=== PATIENT | male | born 1990 | race Caucasian/White ===

== ENCOUNTER 2016-11-05 09:04 | Outpatient (CLI) ==
[2016-11-05 09:16] LABS: BASOPHILS % (AUTO) 0.3 % (0.0-3.0); EOSINOPHILS # (AUTO) 0.3 K/ul (0.0-0.7); EOSINOPHILS % (AUTO) 3.8 % (0.0-7.0); HEMATOCRIT 44.8 % (42.0-52.0); HEMOGLOBIN 15.1 g/dl (14.0-18.0); IMMATURE GRANULOCYTE % (AUTO) 0.1 % (0.0-5.0); LYMPHOCYTES # (AUTO) 2.2 K/uL (0.60-3.4); MEAN CORPUSCULAR HEMOGLOBIN 28.7 pg (27.0-31.0); MEAN CORPUSCULAR HGB CONC 33.7 (31.8-35.4); MEAN CORPUSCULAR VOLUME 85.2 fl (80.0-94.0); MONOCYTES # (AUTO) 0.6 K/uL (0.4-2.0); MONOCYTES % (AUTO) 8.3 (0-10); NEUTROPHILS # (AUTO) 4.1 K/ul (2.0-6.9); NEUTROPHILS % (AUTO) 56.5; PLATELET COUNT 269 10^3/uL (140-440); RED BLOOD COUNT 5.26 10^6/ul (4.70-6.10); WHITE BLOOD COUNT 7.19 K/ul (4.2-10.2)
[2016-11-05 10:03] LABS: ALBUMIN 3.9 g/dL (3.4-5.0); ALBUMIN/GLOBULIN RATIO 0.93; ANION GAP 12.4; BILIRUBIN,TOTAL 0.9 mg/dL (0.00-1.20); BUN/CREATININE RATIO 14.73; CALCIUM 9.3 mg/dL (8.2-10.2); CHOL/HDL RATIO 3.6 (4.5-6.4); CREATININE 0.95 mg/dL (0.60-1.10); POTASSIUM 4.4 mmol/L (3.5-5.1); TOTAL PROTEIN 8.1 g/dL (6.4-8.2)
== END 2016-11-05 09:05 | disposition home or self-care (01) ==
LOC: LAB 09:04
PROVIDERS: ATTEND Family Medicine
DX: E78.5 Hyperlipidemia, unspecified (principal); I10 Essential (primary) hypertension; E66.9 Obesity, unspecified; K21.9 Gastro-esophageal reflux disease without esophagitis
CPT/HCPCS: 36415; 80053; 80061; 84439; 84443; 85025

== ENCOUNTER 2016-12-20 09:41 | Outpatient (CLI) ==
--- NOTE | 2016-12-20 10:08 | DI ---
EXAM: Right foot three views HISTORY: Pain COMPARISON: None FINDINGS: The bones are normal. The joints are normal. No focal soft tissue abnormality. IMPERSSION: Normal examination.
--- NOTE | 2016-12-20 10:09 | DI ---
EXAM: Left foot three views HISTORY: Pain COMPARISON: None FINDINGS: The bones are normal. The joints are normal. No focal soft tissue abnormality. IMPERSSION: Normal examination.
== END 2016-12-20 09:42 | disposition home or self-care (01) ==
LOC: RAD 09:41
PROVIDERS: ATTEND Family Medicine
DX: M79.672 Pain in left foot (principal); M79.671 Pain in right foot

== ENCOUNTER 2017-03-04 17:21 | Emergency (ER) ==
[2017-03-04 17:26] VITALS: BP 137/89; TEMP 99.2; BMI 40.1
[2017-03-04] MEDS ORDERED: ROCEPHIN IM STA (17:49)
[2017-03-04] MEDS ORDERED: LIDOCAINE 1 % AMP 5 ML (SUTURES) IM STA (17:49)
[2017-03-04] MEDS ORDERED: TETANUS DIPHTHERIA TOXOIDS IM ONE (17:50)
--- NOTE | 2017-03-04 17:54 | ED.PDOC ---
General ED Provider: Dr. WARREN KOHLI Chief Complaint: Bite Stated Complaint: cat bite Time Seen by Physician: 17:30 Mode of Arrival: Walk-In Information Source: Patient Exam Limitations: No limitations Primary Care [facility] Nursing and Triage Documentation Reviewed and Agree: Yes Trauma/Injury Complaint Exam - Trauma Complaint/Exam Location of Pain or Injury: Reports: Other (cat bite ) Mechanism of Injury: Reports: Other (personal pet) Onset/Duration: 17 hours ago Symptoms Are: Still present Initial Severity: Mild Current Severity: Mild Aggravating: Reports: None Alleviating: Reports: None Associated Signs and Symptoms: Denies: LOC, Confusion, Memory loss, Lethargy, Vomiting, Bleeding, Bruising, Swelling, Extremity disuse, Painful respiration, Hoarseness, Dysphagia, Hemoptysis, Significant blood loss Review of Systems - Review Of Systems Constitutional: Reports: No symptoms Eyes: Reports: No symptoms Ears, Nose, Mouth, Throat: Reports: No symptoms Respiratory: Reports: No symptoms Cardiac: Reports: No symptoms GI: Reports: No symptoms : Reports: No symptoms Musculoskeletal: Reports: No symptoms Skin: Reports: Rash (right upper ext ) Neurological: Reports: No symptoms Endocrine: Reports: No symptoms Hematologic/Lymphatic: Reports: No symptoms All Other Systems: Reviewed and Negative Past Medical History - Past Medical History Previously Healthy: Yes Endocrine: Reports: None Cardiovascular: Reports: Hypertension Respiratory: Reports: None Hematological: Reports: None Gastrointestinal: Reports: None Genitourinary: Reports: None Neuro/Psych: Reports: None Musculoskeletal: Reports: None Cancer: Reports: None - Surgical History General Surgical History: Reports: None - Family History Family History: Reports: None - Social History Smoking Status: Never smoker Hx Substance Use: No Alcohol Screening: None - Immunizations Tetanus Shot up to Date: Yes Physical Exam - Physical Exam Appearance: Well-appearing, No pain distress, Well-nourished Eyes: DANIE, EOMI, Conjunctiva clear ENT: Ears normal, Nose normal, Oropharynx normal Respiratory: Airway patent, Breath sounds clear, Breath sounds equal, Respirations nonlabored Cardiovascular: RRR, Pulses normal, No rub, No murmur GI/: Soft, Nontender, No masses, Bowel sounds normal, No Organomegaly Musculoskeletal: Normal strength, ROM intact, No edema, No calf tenderness Skin: Warm, Dry, Normal color Neurological: Sensation intact, Motor intact, Reflexes intact, Cranial nerves intact, Alert, Oriented Psychiatric: Affect appropriate, Mood appropriate Critical Care Note - Critical Care Note Total Time (mins): 0 Course - Course Orders, Labs, Meds: Orders Category Date Time Status Ceftriaxone Sodium [Rocephin] MEDS 03/04/17 17:49 Stat 1 gm IM ONCE STA Lidocaine HCl/Pf [Lidocaine 1 % Amp 5 ml (Sutures)] MEDS 03/04/17 17:49 Stat 2.1 ml IM ONCE STA Medications Discontinued Medications Generic Name Dose Route Start Last Admin Trade Name Alli PRN Reason Stop Dose Admin Ceftriaxone Sodium 1 gm 03/04/17 17:49 Rocephin IM 03/04/17 17:50 ONCE STA Lidocaine HCl 2.1 ml 03/04/17 17:49 Lidocaine 1 % Amp 5 Ml (Sutures) IM 03/04/17 17:50 ONCE STA Vital Signs: Temp Pulse Resp BP Pulse Ox 03/04/17 17:21 99.2 F 76 20 137/89 98 Departure - Departure Time of Disposition: 17:54 (personal pet, photos of injury submitted ) Disposition: HOME SELF-CARE Discharge Problem: Cat bite Qualifiers: Encounter type: initial encounter Qualifier Code: (W55.01XA) Bitten by cat, initial encounter Instructions: Animal Bite (ED) Condition: Good Pt referred to PMD for follow-up: Yes Additional Instructions: Please call your Family Physician as soon as possible to schedule a follow-up appointment. Prescriptions: Amoxicillin/Potassium Clav [Augmentin 875-125 mg Tab] 1 tab PO Q12HR #14 tablet Allergies/Adverse Reactions: Allergies No Known Allergies Allergy (Unverified 03/04/17 17:27) Home Medications: Ambulatory Orders Amoxicillin/Potassium Clav [Augmentin 875-125 mg Tab] 1 tab PO Q12HR #14 tablet 03/04/17 Lisinopril [Zestril] 5 mg PO DAILY 03/04/17 Omeprazole [Prilosec] 20 mg PO DAILY 03/04/17 Disposition Discussed With: Patient
== END 2017-03-04 18:24 | disposition home or self-care (01) ==
LOC: ED 17:21
DX: S41.151A Open bite of right upper arm, initial encounter (principal); W55.01XA Bitten by cat, initial encounter
CPT/HCPCS: 96372; 99283

== ENCOUNTER 2017-03-20 11:56 | Outpatient (CLI) ==
[2017-03-20 13:28] LABS: BASOPHILS % (AUTO) 0.4 % (0.0-3.0); EOSINOPHILS # (AUTO) 0.3 K/ul (0.0-0.7); EOSINOPHILS % (AUTO) 4.2 % (0.0-7.0); HEMATOCRIT 43.6 % (42.0-52.0); HEMOGLOBIN 14.5 g/dl (14.0-18.0); IMMATURE GRANULOCYTE % (AUTO) 0.3 % (0.0-5.0); LYMPHOCYTES # (AUTO) 2.1 K/uL (0.60-3.4); LYMPHOCYTES % (AUTO) 28.7 (10.0-50.0); MEAN CORPUSCULAR HEMOGLOBIN 28.3 pg (27.0-31.0); MEAN CORPUSCULAR HGB CONC 33.3 (31.8-35.4); MEAN CORPUSCULAR VOLUME 85.2 fl (80.0-94.0); MONOCYTES # (AUTO) 0.6 K/uL (0.4-2.0); MONOCYTES % (AUTO) 8.3 (0-10); NEUTROPHILS # (AUTO) 4.2 K/ul (2.0-6.9); NEUTROPHILS % (AUTO) 58.1; PLATELET COUNT 276 10^3/uL (140-440); RED BLOOD COUNT 5.12 10^6/ul (4.70-6.10); WHITE BLOOD COUNT 7.14 K/ul (4.2-10.2)
[2017-03-20 13:43] LABS: ALBUMIN 3.8 g/dL (3.4-5.0); ALBUMIN/GLOBULIN RATIO 1.03; ANION GAP 14.8; BILIRUBIN,TOTAL 0.67 mg/dL (0.00-1.20); BUN/CREATININE RATIO 13.4; CALCIUM 9.3 mg/dL (8.2-10.2); CREATININE 0.97 mg/dL (0.60-1.10); POTASSIUM 3.8 mmol/L (3.5-5.1); TOTAL PROTEIN 7.5 g/dL (6.4-8.2)
== END 2017-03-20 11:57 | disposition home or self-care (01) ==
LOC: LAB 11:56
PROVIDERS: ATTEND Nurse Practitioner Family
DX: L50.9 Urticaria, unspecified (principal); W55.03XD Scratched by cat, subsequent encounter
CPT/HCPCS: 36415; 80053; 85025

== ENCOUNTER 2017-09-16 08:08 | Outpatient (CLI) ==
--- NOTE | 2017-09-16 08:45 | US ---
EXAM: Abdominal ultrasound limited HISTORY: Epigastric pain COMPARISON: None TECHNIQUE: Sonographic and limited Doppler evaluation of the right upper quadrant was performed. FINDINGS: The liver is normal in echogenicity and measures 15.4 cm. The portal vein is patent. The gallbladder demonstrates numerous layering stones with posterior shadowing. The gallbladder wall me asures 0.3 cm in thickness without pericholecystic fluid. Common bile duct is unremarkable and measur es 0.4 cm in diameter. The pancreas is unremarkable in appearance. The right kidney measures 9.6 x 4 .7 x 4.4 cm with cortical thickness of 1.8 cm. There is no stone or hydronephrosis. IMPRESSION: Numerous gallstones without gallbladder wall thickening or pericholecystic fluid to suggest acute ch olecystitis.
== END 2017-09-16 08:09 | disposition home or self-care (01) ==
LOC: RAD 08:08
PROVIDERS: ATTEND Emergency Medicine
DX: R10.13 Epigastric pain (principal); I10 Essential (primary) hypertension; K21.9 Gastro-esophageal reflux disease without esophagitis
CPT/HCPCS: 36415; 80053; 82150; 83690; 85025

== ENCOUNTER 2017-11-28 13:06 | Outpatient (CLI) | END 2017-11-28 13:07 | disposition home or self-care (01) | LOC: LAB 13:06 | PROVIDERS: ATTEND Emergency Medicine | DX: I10 Essential (primary) hypertension (principal); K21.9 Gastro-esophageal reflux disease without esophagitis; R35.0 Frequency of micturition | CPT/HCPCS: 36415; 80061; 81001 ==

== ENCOUNTER 2017-12-05 11:46 | Outpatient (CLI) | END 2017-12-05 11:47 | disposition home or self-care (01) | LOC: RHC-LAB 11:46 | PROVIDERS: ATTEND Nurse Practitioner Family | DX: R68.89 Other general symptoms and signs (principal) | CPT/HCPCS: 36415; 84443 ==

== ENCOUNTER 2018-12-08 13:33 | Outpatient (CLI) | payer OTHER | END 2018-12-08 13:34 | disposition home or self-care (01) | LOC: LAB 13:33 | PROVIDERS: ATTEND Nurse Practitioner Family | DX: I10 Essential (primary) hypertension (principal) | CPT/HCPCS: 36415; 80053; 80061; 84443; 85025 ==

== ENCOUNTER 2018-12-13 02:46 | Emergency (ER) ==
[2018-12-13 02:55] VITALS: BP 114/76; TEMP 98; BMI 35.9
--- NOTE | 2018-12-13 03:14 | ED.PDOC ---
General ED Provider: Dr. CHLOE BRAR-ER Chief Complaint: Non-specific Complaint Stated Complaint: i scratched my ear and it bled Time Seen by Physician: 02:50 Mode of Arrival: Walk-In Information Source: Patient Exam Limitations: No limitations Primary Care Provider: ASYA NASSAR Nursing and Triage Documentation Reviewed and Agree: Yes Does patient meet sepsis criteria?: No System Inflammatory Response Syndrome: Not Applicable Sepsis Protocol: For patient's 13 years and over: Temp is 96.8 and below OR 101 and greater Pulse >90 BPM Resp >20/minute Acutely Altered Mental Status Are patient's symptoms suggestive of a new infection, such as: -Pneumonia -Skin, Soft Tissue -Endocarditis -UTI -Bone, Joint Infection -Implantable Device -Acute Abdominal Infection -Wound Infection -Meningitis -Blood Stream Catheter Infection -Unknown EENT Complaint Exam - Ear Complaint/Exam Onset/Duration: 1 hr ago Symptoms Are: Resolved Initial Severity: Mild Current Severity: Mild Character: Reports: Unable to describe Associated Signs and Symptoms: Reports: Ear trauma, Bleeding Ear Surgical History: None Vesicles to External Pinna: No Vesicles to Tragus: No External Canal: Erythema Material in Canal: Present: Blood Differential Diagnoses: Abrasion Review of Systems - Review Of Systems Constitutional: Reports: No symptoms Eyes: Reports: No symptoms Ears, Nose, Mouth, Throat: Reports: Ear discharge Respiratory: Reports: No symptoms Cardiac: Reports: No symptoms GI: Reports: No symptoms : Reports: No symptoms Musculoskeletal: Reports: No symptoms Skin: Reports: No symptoms Neurological: Reports: No symptoms Endocrine: Reports: No symptoms Hematologic/Lymphatic: Reports: No symptoms All Other Systems: Reviewed and Negative Past Medical History - Past Medical History Previously Healthy: Yes Endocrine: Reports: None Cardiovascular: Reports: Hypertension Respiratory: Reports: None Hematological: Reports: None Gastrointestinal: Reports: None Genitourinary: Reports: None Neuro/Psych: Reports: None Musculoskeletal: Reports: None Cancer: Reports: None - Surgical History General Surgical History: Reports: None - Family History Family History: Reports: None - Social History Smoking Status: Never smoker Hx Substance Use: No Alcohol Screening: None - Immunizations Tetanus Shot up to Date: Yes Physical Exam - Physical Exam Appearance: Well-appearing, No pain distress, Well-nourished Eyes: DANIE, EOMI, Conjunctiva clear ENT: Nose normal, Oropharynx normal Neck: Supple Respiratory: Airway patent, Breath sounds clear, Breath sounds equal, Respirations nonlabored Cardiovascular: RRR, Pulses normal, No rub, No murmur GI/: Soft, Nontender, No masses, Bowel sounds normal, No Organomegaly Musculoskeletal: Normal strength, ROM intact, No edema, No calf tenderness Skin: Warm Neurological: Sensation intact, Motor intact, Reflexes intact, Cranial nerves intact, Alert, Oriented Psychiatric: Affect appropriate, Mood appropriate Critical Care Note - Critical Care Note Total Time (mins): 0 Course - Course Vital Signs: Temp Pulse Resp BP Pulse Ox 12/13/18 02:48 98 F 92 H 18 114/76 96 Departure - Departure Time of Disposition: 03:13 Disposition: HOME SELF-CARE Discharge Problem: Abrasion of ear canal Qualifiers: Encounter type: initial encounter Laterality: left Qualified Code(s): S00.412A - Abrasion of left ear, initial encounter Instructions: Ear Abrasion (ED) Condition: Good Pt referred to PMD for follow-up: Yes IPMP verified?: No Additional Instructions: bactroban ointment apply to the ear canal bid till healed---rcheck ear with pcp next week to make sure healed Allergies/Adverse Reactions: Allergies No Known Allergies Allergy (Verified 12/13/18 02:55) Home Medications: Ambulatory Orders Lisinopril [Zestril] 5 mg PO DAILY 12/13/18 Disposition Discussed With: Patient
== END 2018-12-13 03:30 | disposition home or self-care (01) ==
LOC: ED 02:46
DX: S00.412A Abrasion of left ear, initial encounter (principal)
CPT/HCPCS: 99282